=== PATIENT | male | born 1950 | race Two or more races ===

== ENCOUNTER 2024-01-05 10:01 | Day surgery (SDC) | payer MEDICARE, SELFPAY ==
--- NOTE | 2024-01-05 10:21 | US_ITS ---
[address] [address] Patient Name: ISAK ALFORD MRN: [id number] date: 1950 Sex: M Assigned Patient Location: [place] Current Patient Location: US Accession/Order Number: [id number] Exam Date: 01/05/2024 10:22 Report Date: 01/05/2024 12:01 At the request of: JUAN CARLOS JOSE Procedure: US biopsy thyroid EXAMINATION: US biopsy thyroid HISTORY: Thyroid Nodule COMPARISON: No relevant comparison available. TECHNIQUE: After obtaining informed consent, an ultrasound-guided biopsy was performed in the usual sterile manner. FINDINGS: IMAGING: Ultrasound BIOPSY NEEDLE: 25-gauge, 2 inch SPECIMEN TYPE, #, LOCATION: 3 fine-needle aspirates, right thyroid nodule MEDICATION: 3 cc 1% buffered lidocaine COMPLICATIONS: None. LABORATORY: Molecular studies and pathology OTHER: Negative. US/US biopsy thyroid IMPRESSION: Uneventful ultrasound guided biopsy. The patient was instructed to obtain follow up care and biopsy results from the referring physician. Electronically authenticated by: ANGELES VAUGHN Date: 01/05/2024 12:01
[2024-01-05 10:25] VITALS: BP 127/73; PULSE 71; O2SAT 96
[2024-01-05] MEDS: LIDOCAINE HCL 10 ML, SODIUM BICARBONATE 1 MEQ INJ (11:15)
--- NOTE | 2024-01-05 12:40 | SUR.PREOP ---
12/07/[address] Singh for holding anticoagulants 5 days prior to procedure. 12/15/23 Called for status and no answer yet. 12/22/23 Called for status on request and left a message. 12/24 Left a message inquiring on status. 12/28/[address] Singh to hold Aspirin and Clopidogrel x 5 days prior to biopsy. Contacted pt and made him aware of prep, procedure, date, and time of appt.
== END 2024-01-05 11:35 | disposition home or self-care (01) ==
LOC: US 10:06
PROVIDERS: Radiology Diagnostic Radiology; Visit Provider Otolaryngology
DX: E04.1 Nontoxic single thyroid nodule (principal)
CPT/HCPCS: 10005; 88173